=== PATIENT | female | born 1950 ===

== ENCOUNTER 2020-06-13 10:00 | Outpatient (CLI) | payer OTHER | END 2020-06-13 10:01 | disposition home or self-care (01) | LOC: PPH VACUNA 10:00 | PROVIDERS: ATTEND Emergency Medicine Pediatric Emergency Medicine | DX: Z23 Encounter for immunization (principal) ==

== ENCOUNTER 2021-01-31 08:00 | Outpatient (CLI) | payer OTHER | END 2021-01-31 08:30 | disposition home or self-care (01) | LOC: PPH VACUNA 08:00 | PROVIDERS: ATTEND Emergency Medicine Pediatric Emergency Medicine | DX: Z23 Encounter for immunization (principal) ==

== ENCOUNTER 2021-10-03 12:20 | Outpatient (CLI) | payer OTHER | END 2021-10-03 12:50 | disposition home or self-care (01) | LOC: PPH VACUNA 12:20 | PROVIDERS: ATTEND Emergency Medicine Pediatric Emergency Medicine | DX: Z23 Encounter for immunization (principal) ==